=== PATIENT | male | born 1950 | race Caucasian/White ===

== ENCOUNTER → 2023-09-14 06:14 | Outpatient (CLI) | payer OTHER, SELFPAY ==
--- NOTE | 2023-09-14 06:17 | DI.ECHO.S_ITS ---
[facility]---------+ [facility] +---------+ : : [address] : [place] [address] : : : : [id number] : : : : Phone: [phone]+ Echocardiogram Report + + :Name: FOREST MCCOY Study Date: 09/14/2023 Height: 71 in : :[facility] ReadingLocation: Weight: 260 lb : : Gender: Male BSA: 2.4 m2 : :: 1950 Age: 73 yrs BP: 153/75 mmHg: :Reason For Study: SCREENING : :Ordering Physician: ERNESTINA, : :JEN Performed By: Tanesha Long : :Referring: JEN DO : + + Interpretation Summary Left ventricular ejection fraction is estimated to be 40 +/- 5%. Inferior and inferolateral faye are hypokinetic The right ventricle is mildly dilated. There is mild mitral regurgitation. There is mild tricuspid regurgitation. The right ventricular systolic pressure is estimated to be at least 37 mmHg based on an estimated right atrial pressure of 3 mm Hg. Procedure: A two-dimensional transthoracic echocardiogram with color flow and Doppler was performed. The study quality was technically adequate. There is no prior echocardiogram noted for this patient. The patient had a bundle branch block rhythm during the exam. The heart rate ranged between 63-75 bpm during the study. Left Ventricle: The left ventricle is normal in size. Left ventricular wall thickness is at the upper limits of normal. Left ventricular ejection fraction is estimated to be 40 +/- 5%. Septal motion is consistent with conduction abnormality. Inferior and inferolateral faye are hypokinetic. Right Ventricle: The right ventricle is mildly dilated. The right ventricular systolic function is normal. Atria: The left atrium is moderately dilated. The right atrium is moderate to severely dilated. There is no Doppler evidence for an interatrial shunt. Mitral Valve: The mitral valve leaflets appear borderline thickened, but open well. There is mild mitral regurgitation. There are multiple regurgitant jets present. Aortic Valve: The aortic valve is trileaflet. The aortic valve opens well. The aortic valve is slightly calcified. There is no aortic valve stenosis. No aortic regurgitation is present. Tricuspid Valve: The tricuspid valve leaflets are thin and pliable. There is mild tricuspid regurgitation. The right ventricular systolic pressure is estimated to be at least 37 mmHg based on an estimated right atrial pressure of 3 mm Hg. Pulmonic Valve: The pulmonic valve is not well visualized. There is no pulmonic valvular regurgitation. Great Vessels: The aortic root is normal size. The dimensions of the ascending aorta are normal. The IVC is of normal diameter and collapses greater than 50% with a sniff. This suggests a low right atrial pressure of 3 mm Hg. Pericardium/ Pleura There is no pericardial effusion. There is no pleural effusion. MMode/2D Measurements & Calculations LVIDd: 5.6 cm LVOT diam: 2.3 cm LVIDs: 4.7 cm Ao root diam: 3.1 cm FS: 16.8 % asc Aorta Diam: 3.5 cm IVSd: 1.1 cm LVPWd: 0.88 cm LV oneill. diameter/BSA (cm/m^2): 2.4 LV sys. diameter/BSA (cm/m^2): 2.0 LA A2 area: 24.5 cm2 RA long axis: 6.2 cm LA A4 area: 33.2 cm2 RA area: 29.0 cm2 LA length (vol): 6.7 cm RA vol: 115.4 ml LA vol: 103.0 ml RA : 49.0 ml/m2 LA vol index: 43.7 ml/m2 IVC diam: 1.5 cm RVD1 (basal): 5.4 cm TAPSE: 2.5 cm Doppler Measurements & Calculations Ao V2 max: 191.4 cm/sec LVOT Max Hermes: 89.1 cm/sec Ao V2 mean: 129.8 cm/sec LV V1 max P.2 mmHg Ao max P.7 mmHg LV V1 VTI: 23.2 cm Ao mean P.6 mmHg DEVAN(I,D): 2.4 cm2 Ao V2 VTI: 42.2 cm DEVAN(V,D): 2.0 cm2 sev ratio: 0.55 DEVAN indexed to BSA (cm^2/m^2): 1.00 MV E max hermes: 109.1 cm/sec TR max hermes: 290.8 cm/sec MV A max hermes: 99.2 cm/sec TR max P.8 mmHg MV E/A: 1.1 PA V2 max: 112.8 cm/sec Med Peak E' Hermes: 4.2 cm/sec PA V2 mean: 82.4 cm/sec E/E' med: 25.7 PA mean P.0 mmHg Lat Peak E' Hermes: 8.2 cm/sec PA pr(Accel): 36.2 mmHg E/E' lat: 13.3 E/e' average: 19.5 MV dec time: 0.18 sec SV(LVOT): 99.3 ml Reading Physician:03:24 PM
== END ==
LOC: ECHO 06:16
DX: Z00.00 Encounter for general adult medical examination without abnormal findings (principal); I08.1 Rheumatic disorders of both mitral and tricuspid valves
CPT/HCPCS: 93306